=== PATIENT | female | born 1930 | race Caucasian/White ===

== ENCOUNTER 2017-01-04 14:32 | Emergency (ER) | payer OTHER ==
[~2017-01-04] VITALS: Ht 166.4 cm; Wt 60.3 kg
[~2017-01-04 14:32] MED LIST: LOVA10TA PO; OXYB5TAB PO; SYNT88TA PO
[2017-01-04 14:35] VITALS: BP 133/66; PULSE 81; RESP 16; TEMP 98.6; O2SAT 95
[2017-01-04 14:59] VITALS: BP 116/72; PULSE 79; RESP 18; O2SAT 96
[2017-01-04] MEDS ORDERED: PRESCAP5 PO (14:59)
[2017-01-04] MEDS ORDERED: OXYB5TAB10 PO (14:59)
[2017-01-04] MEDS ORDERED: LEVO88TA2 PO (14:59)
[2017-01-04] MEDS ORDERED: LOVA20TA PO (14:59)
--- NOTE | 2017-01-04 15:23 | PD ---
HPI . Fall Chief Complaint: Fall Time Seen by Provider: 14:52 Travel History International Travel<30 days: No Contact w/Intl Traveler<30days: No Traveled to known affect area: No History of Present Illness HPI Patient presents for evaluation of injury sustained in a fall. The fall occurred immediately prior to arrival. She was locking her door which is up 3 steps from the ground. She lost her balance and fell and landed flat on her head. She states that she did not strike the edges of the steps. He states that she struck her head on the ground. She denies loss of consciousness. She is not on any blood thinners. She is, however, complaining with head pain. She denies neck pain. He with a scrape on her left elbow and diffuse low back pain. She states that her pain is severe. She has not noted any exacerbating or relieving factors. PFSH Past Medical History High Cholesterol: Yes Diminished Hearing: No Genitourinary: Yes (OVERACTIVE BLADDER) Thyroid Disease: Yes Tetanus Vaccination: < 5 Years Influenza Vaccination: Yes Menopausal: Yes Past Surgical History Eye Surgery: Yes (BILAT. CATARACT) Social History Alcohol Use: Yes (DAILY WINE 1GLASS OF WHITE AND 1 OF RED) Tobacco Use: No (FORMER) Substance Use: No Allergies-Medications (Allergen,Severity, Reaction): Coded Allergies: No Known Allergies (Unverified , 01/04/17) Reported Meds & Prescriptions Reported Meds & Active Scripts Active Reported Lovastatin 20 Mg Tab 20 Mg PO HS Ditropan (Oxybutynin Chloride) 5 Mg Tab 5 Mg PO TID Preservision Areds 2 (Multiple Vitamins W/ Minerals) 1 Cap 1 Cap PO BID Levothyroxine (Levothyroxine Sodium) 88 Mcg Tab 88 Mcg PO DAILY Review of Systems Except as stated in HPI: all other systems reviewed are Neg General / Constitutional: No: Fever, Chills Eyes: No: Diploplia, Blurred Vision HENT: Positive: Headaches, No: Neck Pain Cardiovascular: No: Chest Pain or Discomfort Respiratory: No: Shortness of Breath Gastrointestinal: No: Nausea, Vomiting Musculoskeletal: Positive: Pain (diffuse low back pain) Physical Exam Narrative GENERAL: Healthy-appearing elderly lady in no acute distress SKIN: Warm and dry. She has an abrasion on her left elbow. HEAD: Normocephalic. She has a contusion to the right vertex of her scalp. EYES: Pupils equal and round. Extraocular movements are intact. ENT: No nasal bleeding or discharge. Mucous membranes pink and moist. NECK: Trachea midline. Neck is nontender with full range of motion. CARDIOVASCULAR: Regular rate and rhythm. RESPIRATORY: No accessory muscle use. MUSCULOSKELETAL: No obvious deformities. No edema. She has full range of motion of the left elbow. There is no deformity. She has diffuse tenderness to palpation of the low back. There is no bruising or abrasion noted. NEUROLOGICAL: Awake and alert. No obvious cranial nerve deficits. Motor grossly within normal limits. Normal speech. PSYCHIATRIC: Appropriate mood and affect; insight and judgment normal. Data Data Last Documented VS Vital Signs Date Time Temp Pulse Resp B/P Pulse Ox O2 Delivery O2 Flow Rate FiO2 01/04/17 14:59 81 16 95 Room Air 01/04/17 14:59 116/72 01/04/17 14:[address] Brain W/O Iv Contrast(Rout) (01/04/17 14:52) Ct Lumb Spine W/O Contrast (01/04/17 14:52) MDM Medical Decision Making Medical Screen Exam Complete: Yes Emergency Medical Condition: Yes Differential Diagnosis My differential diagnosis of head trauma includes but is not limited to scalp contusion, concussion, intracerebral hemorrhage. Differential diagnosis includes but is not limited to degenerative disc disease , spinal stenosis, lumbar radiculopathy, muscular pain., kidney colic, pyelonephritis, AAA, compression fracture Narrative Course Patient presents for evaluation of injury sustained in a fall. I have ordered a CT of her head and her lumbar spine. Last Impressions Head CT 01/04/17 1452 Signed Impressions: Service Date/Time: Wednesday, January 04, 2017 15:07 - CONCLUSION: 1. No acute intracranial abnormality. Stable compared to previous dated 12/09/13. Bhavin Aviles MD The CT of her L-spine is pending Her care is being turned over to Dr. Dukes pending the results of the L-spine CT Diagnosis Primary Impression: Fall Qualified Code: W19.XXXA - Fall, initial encounter Additional Impression: Contusion of scalp, initial encounter Scripts Hydrocodone-Acetaminophen ([place])5-325 mg Tab1 Tab PO Q4H PRN (PAIN) #12 TAB Ref 0 Prov:Saskia Lindquist MD 01/04/17 Condition: Stable Saskia Lindquist MD Jan 04, 2017 15:23
--- NOTE | 2017-01-04 15:35 | RADHPO ---
EXAM DATE/TIME: 01/04/2017 15:07 [facility] COMPARISON: CT BRAIN W/O CONTRAST, December 09, 2013, 17:47. INDICATIONS : Trauma. Fall. RADIATION DOSE: 62.62 CTDIvol (mGy) MEDICAL HISTORY : None SURGICAL HISTORY : None. ENCOUNTER: Initial ACUITY: 1 day PAIN SCALE: 0/10 LOCATION: cranial TECHNIQUE: Multiple contiguous axial images were obtained of the head. Using automated exposure control and adj ustment of the mA and/or kV according to patient size, radiation dose was kept as low as reasonably a chievable to obtain optimal diagnostic quality images. FINDINGS: CEREBRUM: The ventricles are normal for age. No evidence of midline shift, mass lesion, hemorrhage or acute in farction. No extra-axial fluid collections are seen. POSTERIOR FOSSA: The cerebellum and brainstem are intact. The 4th ventricle is midline. The cerebellopontine angle i s unremarkable. EXTRACRANIAL: The visualized portion of the orbits is intact. SKULL: The calvaria is intact. No evidence of skull fracture. CONCLUSION: 1. No acute intracranial abnormality. Stable compared to previous dated 12/09/13. Bhavin Aviles MD on January 04, 2017 at 15:32 Board Certified Radiologist. This report was verified electronically.
[2017-01-04] MEDS ORDERED: NORC5TAB PO (15:53)
--- NOTE | 2017-01-04 16:49 | RADHPO ---
EXAM DATE/TIME: 01/04/2017 15:11 [facility] COMPARISON: CT BRAIN W/O CONTRAST, January 04, 2017, 15:07. INDICATIONS : Trauma. Fall. RADIATION DOSE: 25.33 CTDIvol (mGy) MEDICAL HISTORY : None SURGICAL HISTORY : None. ENCOUNTER: Initial ACUITY: 1 day PAIN SCALE: 6/10 LOCATION: Lumbar spine TECHNIQUE: Volumetric scanning of the lumbar spine was performed. Multiplanar reconstructions in the sagittal, coronal and oblique axial planes were performed. Using automated exposure control and adjustment of the mA and/or kV according to patient size, radiation dose was kept as low as reasonably achievable t o obtain optimal diagnostic quality images. FINDINGS: Sagittal and coronal reformats are provided. These demonstrate a convex left rotatory scoliosis. Ther e are severely degenerated disc at L2/3, L3/4, L4/5 and L5/S1. No acute fractures identified. No dest ructive lesion is present. T12-L1: The thecal sac has a normal diameter. No evidence of disc bulge or protrusion. The neural foramina are patent bilaterally. L1-L2: There is a small broad-based disc bulge. The thecal space and neural foramina are adequate. There is mild facet arthritis bilaterally. L2-L3: There is a degenerated disc. There is broad-based disc bulge and diffuse osteophytic ridging. There i s facet arthritis bilaterally with mild facet and ligamentous hypertrophy. This results in mild narro wing of the thecal side and foramina at this level. L3-L4: There is a degenerated disc with osteophytic ridging. This just effaces the ventral thecal sac. There is moderate facet arthritis bilaterally. The thecal space and foramina appear adequate. L4-L5: There is a severely degenerated disc. There is a small broad-based disc bulge and diffuse osteophytic ridging. There is moderate facet arthritis bilaterally with degenerative facet and ligamentous hyper trophy. This results in a mild degree of spinal stenosis and bilateral foraminal narrowing at this le mary beth. L5-S1: There is a degenerated disc. There is a small broad-based disc bulge. The thecal space is adequate. T he foramina appear adequate. There is moderate facet arthritis bilaterally. Imaging through the pelvis demonstrates a 8.0 x 6.4 cm cystic mass in the right adnexa. This appears to be ovarian in origin. CT imaging of the abdomen and pelvis with contrast is warranted for further assessment. The examination also demonstrates a low attenuation mass which appears to arise from the right adrenal measuring 3.2 x 2.3 cm. This is most consistent with adrenal adenoma. This is only part ially visualized. Again CT imaging of the abdomen and pelvis would be warranted for further assessmen t of this abnormality as well. CONCLUSION: 1. 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 The individual levels are dictated in detail above. 2. Incidental hemangioma in L2 and L3. 3. 6.4 x 8.0 cm adnexal mass on the right. 4. 3.2 x 2.3 cm right adrenal mass probably representing a benign adenoma. Bhavin Aviles MD on January 04, 2017 at 16:37 Board Certified Radiologist. This report was verified electronically.
--- NOTE | 2017-01-04 17:10 | PD ---
Physical Exam Date Seen by Provider: Jan 04, 2017 Time Seen by Provider: 17:06 Narrative This 86-year-old female had presented with complaints of back pain and head pain after a fall. She had fallen backwards. She does have a history of back trouble. CT scans of the head and back were ordered. Head is negative. CT scan of the back shows advanced degenerative changes. There is a meningioma and S2 without relief. There is noted to be a 6 x 8 cm adnexal mass right. CT scan of the abdomen and pelvis is recommended. I discussed this with the patient. She did not do undergo this at this time and says she will call her primary care physician on Saturday and arrange follow up. Dr. crabtree is written a prescription for Lortab for her back pain. She is stable for discharge Data Data Last Documented VS Vital Signs Date Time Temp Pulse Resp B/P Pulse Ox O2 Delivery O2 Flow Rate FiO2 01/04/17 14:59 81 16 95 Room Air 01/04/17 14:59 116/72 01/04/17 14:[address] Brain W/O Iv Contrast(Rout) (01/04/17 14:52) Ct Lumb Spine W/O Contrast (01/04/17 14:52) MDM Medical Record Reviewed: No Supervised Visit with ZOHRA: No Differential Diagnosis Differential includes fracture of the back, contusion, contusion of the head, subdural Narrative Course The head is negative. CT of the back shows degenerative changes. There is noted to be a mass in the right adnexal area. CT of the abdomen and pelvis is recommended evaluation. Patient does not wish to do this at this time as it is Saturday night. Follow up with her physician on Saturday Diagnosis Primary Impression: Fall Qualified Code: W19.XXXA - Fall, initial encounter Additional Impressions: Contusion of scalp, initial encounter Adnexal mass Contusion of back Scripts Hydrocodone-Acetaminophen ([place])5-325 mg Tab1 Tab PO Q4H PRN (PAIN) #12 TAB Ref 0 Prov:Saskia Crabtree MD 01/04/17 Disposition: 01 DISCHARGE HOME Condition: Stable Ricardo Bernstein MD Jan 04, 2017 17:10
== END 2017-01-04 17:22 | disposition home or self-care (01) ==
LOC: PHED 14:32
DX: S00.03XA Contusion of scalp, initial encounter (principal); S30.0XXA Contusion of lower back and pelvis, initial encounter; R51 Headache; E78.00 Pure hypercholesterolemia, unspecified; N32.81 Overactive bladder; Z87.891 Personal history of nicotine dependence; R19.09 Other intra-abdominal and pelvic swelling, mass and lump; W10.9XXA Fall (on) (from) unspecified stairs and steps, initial encounter; Y93.89 Activity, other specified; Y92.008 Other place in unspecified non-institutional (private) residence as the place of occurrence of the external cause; Y99.8 Other external cause status
CPT/HCPCS: 70450; 72131